=== PATIENT | male | born 1990 | race African-American/Black ===

== ENCOUNTER 2018-06-23 11:23 | Emergency (ER) ==
[2018-06-23 11:27] VITALS: BP 139/98; TEMP 98.5
[2018-06-23] MEDS ORDERED: SODIUM CHLORIDE 1,000 ML IV STA (12:08)
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
== END 2018-06-23 14:38 | disposition home or self-care (01) ==
LOC: ED 11:23
DX: S29.9XXA Unspecified injury of thorax, initial encounter (principal); R07.89 Other chest pain; S80.812A Abrasion, left lower leg, initial encounter; S80.811A Abrasion, right lower leg, initial encounter; V29.9XXA Motorcycle rider (driver) (passenger) injured in unspecified traffic accident, initial encounter; F17.210 Nicotine dependence, cigarettes, uncomplicated
CPT/HCPCS: 36415; 80053; 85025; 96360; 96361; 99283